=== PATIENT | female | born 1980 | race African-American/Black ===

== ENCOUNTER 2020-08-13 02:47 | Emergency (ER) | payer OTHER ==
[~2020-08-13] VITALS: Ht 162.6 cm; Wt 77.1 kg
[2020-08-13] MEDS ORDERED: LEVSIN0.125 MG PO (06:37)
[2020-08-13] MEDS ORDERED: PEPCID AC20 MG PO (06:37)
[2020-08-13] MEDS ORDERED: INTESTINEX680 M2 PO (06:37)
== END 2020-08-13 06:57 | disposition home or self-care (01) ==
LOC: EMR PED 02:47 → ER 02:47 → EMR PED 03:14
DX: K52.9 Noninfective gastroenteritis and colitis, unspecified (principal)